=== PATIENT | male | born 1930 | race Caucasian/White ===

== ENCOUNTER → 2016-07-21 | Outpatient (CLI) | payer MEDICARE, BC ==
[~2016-07-21] MED LIST: OMNIPAQUE 350 MG/ML, 100ML BOTTLE ONE
== END | disposition home or self-care (01) ==
LOC: CFH 12:36
PROVIDERS: ATTEND Internal Medicine
DX: C20 Malignant neoplasm of rectum (principal); K43.5 Parastomal hernia without obstruction or gangrene; K76.89 Other specified diseases of liver; J98.11 Atelectasis
CPT/HCPCS: 71260; 74177; 82565; Q9967